=== PATIENT | female | born 1960 | race Caucasian/White ===

== ENCOUNTER → 2024-09-15 | Outpatient (CLI) | payer MEDICARE ==
--- NOTE | 2024-09-15 14:32 | MR ---
INDICATION: Patient age:Female; 64 years old; Reason for study: H90.A22 SENSORINEURAL HEARING LOSS LEFT EAR; PHH. COMPARISON: None. TECHNIQUE: Multi planar, multi sequence imaging was performed through the brain. Specialized thin s equences were obtained through the internal auditory canals. Pre-and post gadolinium sequences were obtained as well after administration of 9 cc of Gadobutrol. FINDINGS: The osman-white junctions, ventricular system, basal cisterns appear unremarkable. Mild dif fuse cerebral volume loss. Diffusion-weighted imaging shows no evidence of restricted diffusion. Mil d patchy areas of high T2/FLAIR signal intensity are seen within the periventricular and subcortical white matter. After administration of gadolinium, no abnormal enhancement is seen. The internal auditory canal sequences demonstrate no significant irregularity. The 7th cranial nerve s, 8 cranial nerves, and cerebellar pontine angles appear unremarkable. Type I AICA vascular loop on the right. After the administration gadolinium, no abnormal enhancement is seen within the internal a uditory canals. Bilateral aphakia. IMPRESSION: 1. No evidence of intracranial mass nor acute/subacute CVA. 2. No evidence of internal auditory canal abnormality to explain patient's symptomology. 3. Nonspecific white matter changes likely related to chronic small vessel ischemic disease. [facility], , 09/15/2024 2:29 PM
== END | disposition home or self-care (01) ==
LOC: RADMRIMAIN 06:59
PROVIDERS: ATTEND Otolaryngology
DX: H90.A22 Sensorineural hearing loss, unilateral, left ear, with restricted hearing on the contralateral side (principal); H90.42 Sensorineural hearing loss, unilateral, left ear, with unrestricted hearing on the contralateral side; R90.82 White matter disease, unspecified
CPT/HCPCS: 70553; A9585